=== PATIENT | female | born 1995 | race Caucasian/White ===

== ENCOUNTER 2016-11-01 20:34 | Inpatient (IN) | payer BC, OTHER ==
[2016-11-01] MEDS ORDERED: DEXTROSE 5%-LACTATED RINGERS 1,000 ML IV PRN (21:11)
[2016-11-01] MEDS ORDERED: ONDANSETRON HCL/PF 2 MG/ML VIAL IV PRN ×2 (21:11→23:05)
[2016-11-01] MEDS ORDERED: OXYTOCIN 20 UNITS in RINGERS SOLUTION,LACTATED 1,000 ML IV ONE ×2 (21:11→23:05)
[2016-11-01] MEDS ORDERED: RINGERS SOLUTION,LACTATED 1,000 ML IV ONE ×2 (21:11→21:40)
[2016-11-01] MEDS ORDERED: OXYTOCIN/DEXTROSE 5%-WATER 30 UNITS/500 ML BAG IV ONE (21:11)
[2016-11-01] MEDS ORDERED: ceFAZolin SODIUM/DEXTROSE,ISO 2 GM/50 ML BAG IV ONE (21:11)
[2016-11-01] MEDS ORDERED: LIDOCAINE HCL 50 ML VIAL PERI PRN (21:11)
[2016-11-01 21:32] LABS: Hematocrit 36.7 % (37.0-47.0); Hemoglobin 12.5 gm/dL (12.5-16.0); Mean Cell Volume 88.4 fl (78-100); Mean Corpuscular Hemoglobin 30.1 pg (27-31); Mean Corpuscular Hgb Conc 34.1 g/dl (32-36); Mean Platelet Volume 10.5 fl (6.0-9.5); Neutrophil # 6.5 K/mm3 (1.3-6.0); Neutrophil % 67.6 % (42-75.0); Platelet Count 289 K/mm3 (150-450); Red Blood Count 4.15 M/mm3 (4.2-5.4); Red Cell Distribution Width 12.7 % (11.5-14.0); White Blood Count 9.7 K/mm3 (4.0-10.5)
[2016-11-01 21:44] LABS: Albumin * 2.6 gm/dl (3.4-5.0); Anion Gap 13.2 mmol/L (6.8-13.8); Bilirubin, Total 0.1 mg/dL (0.0-1.1); Ca. Corrected For Albumin 9.9 mg/dL (8.4-10.2); Calcium * 9.1 mg/dL (7.9-10.9); Carbon Dioxide 26.8 mmol/L (24-32.6); Total Protein 7.1 gm/dL (6.2-8.2)
[2016-11-01 21:57] LABS: Random Urine Total Protein 65.7 mg/dL (0-12)
[2016-11-01] MEDS ORDERED: BISACODYL 10 MG SUPP.RECT RC PRN (23:05)
[2016-11-01] MEDS ORDERED: SENNOSIDES 8.6 MG TABLET PO PRN (23:05)
[2016-11-01] MEDS ORDERED: diphenhydrAMINE HCL 50 MG/ML VIAL IV PRN (23:06)
--- NOTE | 2016-11-01 23:26 | OR ---
Operative Report - Dictated Report Narrative: Pre Operative Diagnosis: 36 5/7 week intrauterine , nonreassuring tracing, preeclampsia, bicornate uterus Post Operative Diagnosis: Same. Procedure Preformed: Emergent primary Low Transverse Section Surgeon: Wale Guillen DO [employer]: OR staff Anesthesia: General Estimated Blood Loss: 500 mL Urine Output: 75 mL Fluids Given: 1200 mL Drains: Thomas to gravity Surgical Complications: [None] Specimens: Placenta to pathology Findings: Female in cephalic presentation born at 2151 on 11/01/2017 with Apgars 1, 4, 6, 7, 8 and and estimated weight of 2230 g. Bicornate uterus with enlarged right uterine horn, normal-appearing tubes and ovaries. Fetus appeared IUGR, cord was thin, no gross signs of abruption. Oligo hydramnios. Indication: This is a 21-year-old 2 para 1 who presented to labor and delivery with complaint of contractions. tracing had a baseline of 170 with no [id number] variability, recurrent variable decelerations transitioning into recurrent late decelerations. Contractions were every 2-3 minutes her cervix was dilated to 4/80/-2. Technique: The patient was taken to the operating room and placed in dorsal supine position with a left lateral tilt. Thomas catheter,SCDs, sterile prep, and [2 g of Ancef] were given preoperatively prior to induction of general anesthesia. The abdominal cavity was entered via a [modified Cornell-Cho] incision. A transverse incision was made in the lower uterine segment and extended laterally and upwardly with digital traction. Minimal clear fluid was noted upon amniotomy. The infant was delivered easily. The cord was clamped and cut and was handed off to awaiting hand screen printer. A segment of cord was obtained for cord gases. The placenta was allowed to deliver spontaneously. The uterus was cleared of clot and debris. Uterine incision was closed with 0 Vicryl using a running stitch. A second imbricating layer was placed. Excellent hemostasis was noted. The peritoneum was closed with a running 3-0 Monocryl. The same suture was used to approximate the rectus and pyramidalis muscles. The fascia was closed with a running 0 Vicryl. The subcutaneous layer was closed with a running 3-0 Monocryl. The same suture was used to approximate the subdermal layer. The skin was closed with a running 4- 0 Monocryl and Dermabond. Sponge, lap, needle, and instrument count were correct x 2. Since a full count was not done prior to starting the surgery, an x-ray was obtained to verify no instruments or sponges were left within the abdominal cavity. Disposition: The patient was transferred to post anesthesia care unit in good condition
[2016-11-01] MEDS ORDERED: HYDROmorphone HCL 2 MG/ML VIAL IV ONE (23:36)
[2016-11-02] MEDS: IBUPROFEN 800 MG TABLET PO PRN ×4 (00:58→21:35)
[2016-11-02] MEDS: oxyCODONE HCL/ACETAMINOPHEN 1 TAB TABLET PO PRN ×6 (00:58→21:35)
[2016-11-02] MEDS: ENOXAPARIN SODIUM 40 MG/0.4 ML SYRG SC SCH (06:55)
[2016-11-02 07:07] LABS: Cocaine Ur Negative (NEGATIVE); Urine Barbiturate Negative (NEGATIVE); Urine Benzodiazepines Negative (NEGATIVE); Urine Opiates Negative (NEGATIVE); Urine PCP Negative (NEGATIVE); Urine THC Negative (NEGATIVE)
[2016-11-02] MEDS ORDERED: PRENATAL VIT#96/FERROUS FUM/FA 1 TAB TABLET PO SCH (09:00)
[2016-11-02] MEDS: PRENATAL VIT#96/FERROUS FUM/FA 1 TAB TABLET PO SCH (13:10)
[2016-11-02] MEDS: DOCUSATE SODIUM 100 MG CAPSULE PO SCH ×2 (13:10→21:35)
[2016-11-02] MEDS: SIMETHICONE 80 MG TAB.CHEW PO PRN (18:56)
[2016-11-03] MEDS: oxyCODONE HCL/ACETAMINOPHEN 1 TAB TABLET PO PRN ×4 (01:39→12:50)
[2016-11-03] MEDS: IBUPROFEN 800 MG TABLET PO PRN ×2 (04:44→12:50)
[2016-11-03] MEDS: ENOXAPARIN SODIUM 40 MG/0.4 ML SYRG SC SCH (08:01)
[2016-11-03] MEDS: DOCUSATE SODIUM 100 MG CAPSULE PO SCH (08:02)
[2016-11-03] MEDS: PRENATAL VIT#96/FERROUS FUM/FA 1 TAB TABLET PO SCH (08:02)
[2016-11-03] MEDS: SIMETHICONE 80 MG TAB.CHEW PO PRN (09:24)
--- NOTE | 2016-11-03 11:07 | PN ---
Subjective - Date and Time Seen Date: 11/03/16 Time: 11:00 - Pt seen yesterday am, but uanble to chart due to meditech down Objective - Vitals Vitals: Last Vital Signs Temp 36.3 C L 11/03/16 08:10 Pulse 79 11/03/16 08:10 Resp 18 11/03/16 08:10 BP 146/78 11/03/16 08:10 Pulse Ox 97 11/03/16 08:10 Patient denies complaints. Specifically denies headache, epigastric pain, or visual changes. Tolerating regular diet. Ambulating without difficulty. Pain well controlled. Lochia wnl. Blood pressures mildly elevated, good urine output throughout the evening Abdomen - soft, appropriately tender Incision - clean, dry, intact Uterus - firm, at umbilicus -1 No calf tenderness Impression: Post op day #1 s/p primary section. Preeclampsia - resolving Plan: Continue routine post-operative/ care Cauti Physician Documentation - Urinary Catheter Management Urethral (Thomas) Date of Insertion: 11/02/16 Time of Insertion: 21:30
--- NOTE | 2016-11-03 11:56 | PN ---
Subjective - Date and Time Seen Date: 11/03/16 Time: 11:55 Objective - Vitals Vitals: Last Vital Signs Temp 36.1 C L 11/03/16 11:38 Pulse 104 H 11/03/16 11:38 Resp 18 11/03/16 11:38 BP 138/83 11/03/16 11:38 Pulse Ox 96 11/03/16 11:38 [Patient denies complaints. Ambulating well. Tolerating regular diet. Pain well controlled.] Lochia wnl. Abdomen - soft, appropriately tender Incision - [clean, dry, intact] Uterus - firm, at umbilicus -[2] No calf tenderness Impression: Post op day #2 s/p primary section. Preeclampsia- resolving Plan: Continue routine post-operative/ care. Early discharge so mother can be with her in [place]. Preeclampsia precautions. Cauti Physician Documentation - Urinary Catheter Management Urethral (Thomas) Date of Insertion: 11/02/16 Time of Insertion: 21:30
[2016-11-03 14:58] VITALS: BP 129/84
== END 2016-11-03 15:05 | disposition home or self-care (01) | DRG 765 ==
LOC: OBCLINIC 20:34 → OB 21:15
PROVIDERS: ADMIT Obstetrics & Gynecology; ATTEND Obstetrics & Gynecology
PROC: 4A1H7CZ Monitoring of Products of Conception, Cardiac Rate, Via Natural or Artificial Opening (ICD-10-PCS; 2016-11-01)
PROC: 10D00Z1 Extraction of Products of Conception, Low, Open Approach (ICD-10-PCS; principal; 2016-11-01 22:07)
DX: O76 Abnormality in fetal heart rate and rhythm complicating labor and delivery (principal); O60.14X0 Preterm labor third trimester with preterm delivery third trimester, not applicable or unspecified; O14.04 Mild to moderate pre-eclampsia, complicating childbirth; O34.03 Maternal care for unspecified congenital malformation of uterus, third trimester; Q51.3 Bicornate uterus; Z3A.37 37 weeks gestation of pregnancy; Z37.0 Single live birth

== ENCOUNTER 2017-03-14 07:50 | Emergency (ER) | payer BC, OTHER ==
[2017-03-14 07:58] VITALS: BP 109/69
--- NOTE | 2017-03-14 08:15 | ERNOTE ---
ENT HPI Presenting Symptoms: eye pain Time Seen by Provider: 03/14/17 08:00 Source: patient Exam Limitations: no limitations - Immun/Allergies/Home Medications Immunizations: IMMUNIZATION HX Immunizations Up to Date Yes History of Influenza Vaccine Yes Hx Pneumococcal Vaccination No Allergies/Adverse Reactions: Allergies Allergy/AdvReac Type Severity Reaction Status Date / Time amoxicillin Allergy Verified 03/14/17 07:58 peanut Allergy Verified 11/01/16 21:26 venom-honey bee Allergy Verified 11/01/16 21:26 [bee venom (honey bee)] Home Medications: HOME MEDICATIONS Polymyxin B Sulf/Trimethoprim [Polytrim Eye Drops] 2 drop OP QID #5 ml 03/14/17 [Last Taken Unknown] - History of Present Illness Narrative: Patient presents with area of swelling and erythema on the left lower lid. She states there is been some drainage out of there as well and thinks that possibly she got bit by a spider. Severity: Present: moderate ENT Location: Present: eye (L) Modifying Factors - Improves: Reports: nothing Modifying Factors - Worsens: Reports: nothing Associated Symptoms - ENT: Reports: denies symptoms Review of Systems - Review of Systems Constitutional: Present: See HPI EYE: Present: see HPI ENT: Present: no symptoms reported Respiratory: Present: no symptoms reported Cardiology: Present: no symptoms reported Gastrointestinal/Abdominal: Present: no symptoms reported Genitourinary: Present: no symptoms reported Musculoskeletal: Present: no symptoms reported Skin: Present: no symptoms reported Neurological: Present: no symptoms reported Endocrine: Present: no symptoms reported Hematologic/Lymphatic: Present: no symptoms reported Psych: Present: no symptoms reported - Patient's Past Medical History Patient History - Medical: No pertinent hx Patient History - Cardiac/Respiratory: No pertinent hx Patient History - Cancer: No Hx of Cancer Patient History - Surgical Procedures: T & A Patient History - Other: None - Social History Abuse History: No History of abuse Psych History: No pertinent hx Smoking Status: Never smoker Have you smoked in the past 12 months: No Do you dip or chew tobacco: No - Immunizations Immunizations Up to Date: Yes Hx Pneumococcal Vaccination: No History of Influenza Vaccine: Yes Physical Exam - Physical Exam General Appearance: Present: wd/wn, alert, mild distress Eye Exam: Normal inspection: bilateral, PERRL: bilateral, Other: left - lower lid erythema and swelling Ears, Nose, Throat: Present: normal ENT inspection, H, normal pharynx Neck: Present: normal inspection, nontender Respiratory: Present: no respiratory distress, normal breath sounds, no accessory muscle use, chest nontender, lungs clear Cardiovascular/Chest: Present: regular rate, rhythm, no murmur, normal peripheral pulses Gastrointestinal/Abdominal: Present: normal bowel sounds, nontender, nondistended, soft, no organomegaly Rectal Exam: Present: deferred Back Exam: Present: normal inspection, normal range of motion Extremity Exam: Present: normal inspection, non-tender, no edema, normal range of motion Neurological Exam: Present: alert, oriented, normal mood/affect Skin Exam: Present: normal color, warm/dry Lymphatic Exam: Present: no adenopathy ED Progress - Vital Signs Patient's Vital Signs:: I have reviewed the patient's vital signs. Vital Signs: Vital Signs 03/14/17 07:53 Temperature 36.6 C Pulse Rate 85 Respiratory 15 Rate Blood Pressure 109/69 O2 Sat by Pulse 98 Oximetry - Progress/Reassessment Chief Complaint: Eye Injury/Trauma Plan - Plan Plan: patient will be given a prescription for topical antibiotics and formal Polytrim and she'll follow-up with her family physician as needed Departure Clinical Impression: Blepharitis of eyelid of left eye Qualifiers: Blepharitis type: unspecified type Eyelid: lower Qualified Code(s): H01.005 - Unspecified blepharitis left lower eyelid - Departure Disposition: Home self-care Condition: Good Instructions: Blepharitis, [id number] Referrals: Rosa Maria MD [Primary Care Provider] - Prescriptions: Polymyxin B Sulf/Trimethoprim [Polytrim Eye Drops] 2 drop OP QID #5 ml
== END 2017-03-14 08:40 | disposition home or self-care (01) ==
LOC: ER 07:50
DX: H01.005 Unspecified blepharitis left lower eyelid (principal)